=== PATIENT | female | born 1965 | race Caucasian/White ===

== ENCOUNTER 2017-04-04 17:53 | Emergency (ER) | payer MEDICAID ==
[~2017-04-04] VITALS: Ht 167.6 cm; Wt 52.3 kg
[~2017-04-04 17:53] MED LIST: CITA40TA12 PO; CLON1TAB23 PO; DIAZ2TAB PO; OLAN10TA3 PO; OXYC5CAP4 PO
[2017-04-04] MEDS ORDERED: CEFTRIAXONE 250 MG ONE (20:19)
[2017-04-04] MEDS ORDERED: LIDOCAINE 1%, 20ML ONE (20:20)
[2017-04-04] MEDS ORDERED: FLUCONAZOLE 100 MG TABLET PO ONE (20:30)
[2017-04-04] MEDS ORDERED: AZITHROMYCIN 500 MG TABLET PO ONE (20:30)
[2017-04-04] MEDS ORDERED: CEFTRIAXONE 250 MG IM ONE (20:30)
[2017-04-04 20:34] VITALS: BP 127/74
[2017-04-04] MEDS ORDERED: EFAV1TAB PO (20:37)
[2017-04-04] MEDS ORDERED: METH25TA3 PO (20:37)
== END 2017-04-04 20:57 | disposition home or self-care (01) ==
LOC: ED 20:50
DX: B37.3 Candidiasis of vulva and vagina (principal); Z88.8 Allergy status to other drugs, medicaments and biological substances; E87.6 Hypokalemia; F17.200 Nicotine dependence, unspecified, uncomplicated
CPT/HCPCS: 81001; 87086; 87210; 87491; 87591; 87808; 96372; 99284; J0696

== ENCOUNTER 2018-12-28 18:15 | Emergency (ER) | payer MEDICAID ==
[~2018-12-28] VITALS: Ht 167.6 cm; Wt 50.8 kg
[~2018-12-28 18:15] MED LIST changes: +EFAV1TAB PO; +METH25TA3 PO; +OXYC5CAP2 PO; -OXYC5CAP4 PO
[2018-12-28 18:18] VITALS: BP 137/85
[2018-12-28] MEDS ORDERED: CYCLOBENZAPRINE 10 MG TABLET PO SCH (18:30)
[2018-12-28] MEDS ORDERED: [UNRECOGNIZED DRUG - MIXTURE] (18:30)
[2018-12-28] MEDS ORDERED: KETOROLAC 30 MG/1 ML IM ONE (18:30)
[2018-12-28] MEDS ORDERED: KETOROLAC 30 MG/1 ML ONE (18:34)
[2018-12-28] MEDS ORDERED: CYCLOBENZAPRINE 10 MG TABLET ONE (18:34)
[2018-12-28 19:16] LABS: BASOPHILS # (AUTO) 0.03 x10^3/uL (0-0.1); BASOPHILS % (AUTO) 0 % (0-1); EOSINOPHILS # (AUTO) 0.39 x10^3/uL (0-0.4); EOSINOPHILS % (AUTO) 5 % (1-7); LYMPHOCYTES # (AUTO) 2.85 x10^3/uL (1-3.4); LYMPHOCYTES % (AUTO) 36 % (22-44); MD NO; MEAN CORPUSCULAR HEMOGLOBIN 30.5 pg (27.0-34.8); MEAN CORPUSCULAR HGB CONC 32.8 g/dL (32.4-35.8); MEAN CORPUSCULAR VOLUME 93.2 fL (80-100); MEAN PLATELET VOLUME 9.6 fL (7.4-10.4); MONOCYTES # (AUTO) 0.45 x10^3/uL (0.2-0.8); MONOCYTES % (AUTO) 6 % (2-9); NEUTROPHILS # (AUTO) 4.22 x10^3/uL (1.8-6.8); NEUTROPHILS % (AUTO) 53 % (42-75); PLATELET COUNT 168 x10^3/uL (130-400); RED BLOOD COUNT 4.23 x10^6/uL (3.82-5.3); RED CELL DISTRIBUTION WIDTH 12.7 % (9.6-15.2)
[2018-12-28 19:26] LABS: ANION GAP 5 mmol/L (5-15); CALCIUM 8.5 mg/dL (8.5-10.1); CHLORIDE 106 mmol/L (98-107); CREATININE 0.51 mg/dL (0.55-1.02)
== END 2018-12-28 20:10 | disposition home or self-care (01) ==
LOC: ED 19:02
DX: M54.2 Cervicalgia (principal); R60.0 Localized edema; Z90.710 Acquired absence of both cervix and uterus; Z21 Asymptomatic human immunodeficiency virus [HIV] infection status
CPT/HCPCS: 36415; 72050; 80048; 82040; 85025; 93971; 96372; 99284; J1885

== ENCOUNTER 2019-01-09 23:08 | Emergency (ER) | payer MEDICAID ==
[~2019-01-09] VITALS: Ht 167.6 cm; Wt 47.5 kg
[~2019-01-09 23:08] MED LIST changes: +[UNRECOGNIZED DRUG - MIXTURE]
[2019-01-09 23:12] VITALS: BP 169/94
== END 2019-01-10 01:51 | disposition home or self-care (01) ==
LOC: ED 01-10 01:45
DX: G89.29 Other chronic pain (principal); M54.2 Cervicalgia
CPT/HCPCS: 72125; 99284

== ENCOUNTER 2019-07-23 14:35 | Emergency (ER) | payer MEDICAID ==
[~2019-07-23] VITALS: Ht 167.6 cm; Wt 54.9 kg
[~2019-07-23 14:35] MED LIST changes: +BUPR1FIL7 PO
[2019-07-23] MEDS ORDERED: METHOCARBAMOL 750 MG TABLET ONE (14:59)
[2019-07-23] MEDS ORDERED: KETOROLAC 30 MG/1 ML ONE (14:59)
[2019-07-23] MEDS ORDERED: KETOROLAC 30 MG/1 ML IM ONE (15:00)
[2019-07-23] MEDS ORDERED: METHOCARBAMOL 750 MG TABLET PO ONE (15:00)
[2019-07-23 16:12] VITALS: BP 135/74
== END 2019-07-23 16:16 | disposition home or self-care (01) ==
LOC: ED 16:05
DX: G89.29 Other chronic pain (principal); M54.5 Low back pain; F17.200 Nicotine dependence, unspecified, uncomplicated; Z90.710 Acquired absence of both cervix and uterus
CPT/HCPCS: 72110; 96372; 99283; J1885